=== PATIENT | male | born 1970 | race Caucasian/White ===

== ENCOUNTER 2017-12-06 16:35 | Emergency (ER) | payer MEDICAID | END 2017-12-06 17:55 | disposition home or self-care (01) | LOC: FTE 17:55 → E/R 16:35 | DX: K04.7 Periapical abscess without sinus (principal); E11.9 Type 2 diabetes mellitus without complications; Z79.84 Long term (current) use of oral hypoglycemic drugs | CPT/HCPCS: 99284; Z7502 ==

== ENCOUNTER 2019-03-17 16:44 | Emergency (ER) | payer MEDICAID ==
[2019-03-17] MEDS: KETOROLAC 30 MG INJ IM (17:46)
== END 2019-03-17 19:34 | disposition home or self-care (01) ==
LOC: FTE 16:44
DX: S00.83XA Contusion of other part of head, initial encounter (principal); E11.9 Type 2 diabetes mellitus without complications; Y08.89XA Assault by other specified means, initial encounter; Z79.84 Long term (current) use of oral hypoglycemic drugs
CPT/HCPCS: 70450; 70486; 72100; 96372; 99285-25